=== PATIENT | male | born 1965 | race African-American/Black ===

== ENCOUNTER 2016-03-02 08:13 | Emergency (ER) | payer OTHER ==
[~2016-03-02] VITALS: Ht 188 cm; Wt 77.1 kg
[~2016-03-02 08:13] MED LIST: BACTRIM DS TAB1 EACH PO
[2016-03-02 08:14] VITALS: BP 133/102
[2016-03-02] MEDS ORDERED: KEFLEX500 MG PO (08:48)
[2016-03-02] MEDS ORDERED: NORCO 5-325 TA1 EACH PO (08:48)
== END 2016-03-02 09:14 | disposition home or self-care (01) ==
LOC: ER 08:13
DX: S39.012A Strain of muscle, fascia and tendon of lower back, initial encounter (principal); F41.9 Anxiety disorder, unspecified; F17.210 Nicotine dependence, cigarettes, uncomplicated; F10.99 Alcohol use, unspecified with unspecified alcohol-induced disorder; Z48.01 Encounter for change or removal of surgical wound dressing; X50.0XXA Overexertion from strenuous movement or load, initial encounter; Y93.89 Activity, other specified; Y92.89 Other specified places as the place of occurrence of the external cause; Y99.8 Other external cause status